=== PATIENT | female | born 1990 | race American Indian/Alaskan Native ===

== ENCOUNTER 2020-01-15 21:46 | Emergency (ER) | payer BC ==
[2020-01-16] MEDS ORDERED: IBUPROFEN 600 MG TAB PO ONE (04:26)
[2020-01-16] MEDS ORDERED: ACETAMINOPHEN 500 MG TAB PO ONE (04:26)
--- NOTE | 2020-01-16 06:35 | XRay Report ---
Lumbosacral spine, 3 views INDICATION: Back pain following injury FINDINGS: The vertebral body heights and disc spaces are preserved. No fracture or spondylolisthesis. No spurring or arthritis. No bony abnormality identified. Impression: Normal lumbar spine radiograph. Signer Name: Juan José Maya MD Signed: 01/16/2020 6:30 AM Workstation Name: [id number]
--- NOTE | 2020-01-16 06:36 | XRay Report ---
Left shoulder, 3 views INDICATION: Pain following injury FINDINGS: There is no bone, joint or soft tissue abnormality seen. Signer Name: Juan José Maya MD Signed: 01/16/2020 6:32 AM Workstation Name: [id number]
--- NOTE | 2020-01-16 06:44 | Emergency Department Report ---
ED Fall HPI - General Chief Complaint: Back Pain/Injury Stated Complaint: LEFT ARM/LEFT SIDE PAIN Source: patient Mode of arrival: Ambulatory - History of Present Illness Initial Comments: Patient is a 29-year-old -[place]ib[place] female with no past medical history presents to the ED with complaint of acute onset persistent left shoulder pain and low back pain after she slipped and fell down after bouncing on the wall about 6 hours ago. Patient denies head or neck injuries, dizziness, syncope, seizures, chest pain, shortness of breath, physical assault, heavy lifting, change in vision, numbness and tingling or weakness of upper and lower extremities bilaterally. MD Complaint: fall, other (left shoulder and lower back pain) -: Sudden, hour(s) (8) Fall From: standing When Fall Occurred: 4-6 hours [employer] Fall Witnessed: yes, by family Place Fall Occurred: home Loss of Consciousness: none Prolonged Down Time?: no Symptoms Prior to Fall: none Location: back (lower), other (left shoulder) Location - Extremities: Left: Shoulder (pain) Severity: severe Severity scale (0 -10): 7 Quality: sharp, aching Context: tripped/slipped Associated Symptoms: denies. denies: headache, neck pain, numbness, weakness, chest paint, shortness of breath, abdominal pain, hematuria, unable to walk, lightheaded, vertigo, confusion - Related Data Previous Rx's Medication Instructions Recorded Last Taken Type Cyclobenzaprine [Flexeril] 10 mg PO TID PRN #21 tablet 01/16/20 Unknown Rx Ibuprofen [Motrin] 600 mg PO Q8H PRN #24 tablet 01/16/20 Unknown Rx Allergies Allergy/AdvReac Type Severity Reaction Status Date / Time No Known Allergies Allergy Unverified 03/15/15 17:03 ED Review of Systems ROS: Stated complaint: LEFT ARM/LEFT SIDE PAIN Other details as noted in HPI Constitutional: denies: chills, fever Eyes: denies: eye pain, eye discharge, vision change ENT: denies: ear pain, throat pain Respiratory: denies: cough, shortness of breath, wheezing Cardiovascular: denies: chest pain, palpitations Endocrine: no symptoms reported Gastrointestinal: denies: abdominal pain, nausea, diarrhea Genitourinary: denies: urgency, dysuria, discharge Musculoskeletal: back pain (Low back pain), arthralgia (Left shoulder pain). denies: joint swelling Skin: denies: rash, lesions Neurological: denies: headache, weakness, paresthesias Psychiatric: denies: anxiety, depression Hematological/Lymphatic: denies: easy bleeding, easy bruising ED Past Medical Hx - Social History Smoking Status: Never Smoker Substance Use Type: None - Medications Home Medications: Home Medications Medication Instructions Recorded Confirmed Last Taken Type Cyclobenzaprine [Flexeril] 10 mg PO TID PRN #21 tablet 01/16/20 Unknown Rx Ibuprofen [Motrin] 600 mg PO Q8H PRN #24 tablet 01/16/20 Unknown Rx ED Physical Exam - General Limitations: No Limitations General appearance: alert, in no apparent distress - Head Head exam: Present: atraumatic, normocephalic, normal inspection - Eye Eye exam: Present: normal appearance, PERRL, EOMI Pupils: Present: normal accommodation - ENT ENT exam: Present: normal exam, normal orophraynx, mucous membranes moist, TM's normal bilaterally, normal external ear exam - Neck Neck exam: Present: normal inspection, full ROM. Absent: tenderness - Respiratory Respiratory exam: Present: normal lung sounds bilaterally. Absent: respiratory distress, wheezes, rales, rhonchi, chest wall tenderness, accessory muscle use, decreased breath sounds - Cardiovascular Cardiovascular Exam: Present: regular rate, normal rhythm, normal heart sounds. Absent: systolic murmur, diastolic murmur, rubs, gallop - GI/Abdominal GI/Abdominal exam: Present: soft, normal bowel sounds. Absent: tenderness, rebound, hyperactive bowel sounds - Extremities Exam Extremities exam: Present: normal inspection, full ROM, tenderness (Palpable left shoulder tenderness), normal capillary refill - Back Exam Back exam: Present: normal inspection, full ROM, tenderness (Palpable lumbosacral paraspinal musculoskeletal tenderness), muscle spasm, paraspinal tenderness - Neurological Exam Neurological exam: Present: alert, oriented X3, CN II-XII intact, normal gait, reflexes normal - Psychiatric Psychiatric exam: Present: normal affect, normal mood - Skin Skin exam: Present: warm, dry, intact, normal color. Absent: rash ED Course Vital Signs 01/15/20 21:48 Temperature 99.4 F Pulse Rate 103 H Respiratory 18 Rate Blood Pressure 172/117 [Right] O2 Sat by Pulse 99 Oximetry ED Medical Decision Making - Radiology Data Radiology results: report reviewed, image reviewed The left shoulder x-ray shows no acute fractures or subluxations. The L-spine x-ray shows no acute fractures or subluxations. - Medical Decision Making This is a 29-year-old female who presented to the ED with left shoulder pain and low back pain after she slipped and bounced off a wall and fell down 6 hours ago at home. In the ED, patient is alert and oriented x3 and is not in distress. Patient was treated for pain in the ED and the left shoulder x-ray shows no acute fractures or subluxations. The L-spine x-ray also shows no acute fractures or subluxations. On reevaluation, patient's pain is well controlled with medications. Patient was discharged home on pain medications and muscle relaxants and was advised to follow-up with her primary care physician in 5 to 7 days for reevaluation or return to the ED immediately if symptoms get worse. - Differential Diagnosis muscle strain; muscle spasm; back injury; shoulder injury Critical care attestation.: If time is entered above; I have spent that time in minutes in the direct care of this critically ill patient, excluding procedure time. ED Disposition Clinical Impression: Spasm of muscle of lower back Sprain of left shoulder girdle Qualifiers: Encounter type: initial encounter Qualified Code(s): S43.92XA - Sprain of unspecified parts of left shoulder girdle, initial encounter Disposition: TO HOME OR SELFCARE Is pt being admited?: No Does the pt Need Aspirin: No Condition: Stable Instructions: Acute Low Back Pain (ED), Shoulder Sprain (ED), Muscle Spasm (ED) Additional Instructions: The x-rays of your left shoulder and low back show no acute fractures or subluxations. Therefore take pain medications with food, drink plenty fluids and follow-up with your primary care physician in 5 to 7 days for reevaluation. Return to the ED immediately if symptoms get worse. Prescriptions: Cyclobenzaprine [Flexeril] 10 mg PO TID PRN #21 tablet PRN Reason: Muscle Spasm Ibuprofen [Motrin] 600 mg PO Q8H PRN #24 tablet PRN Reason: Pain Referrals: [facility] [Outside] - 7-10 days Forms: Work/School Release Form(ED) Time of Disposition: 06:41 Print Language: TRISTANIAN
[2020-01-16 07:03] VITALS: BP 151/105
== END 2020-01-16 06:50 | disposition home or self-care (01) ==
LOC: ED 21:46
DX: S43.92XA Sprain of unspecified parts of left shoulder girdle, initial encounter (principal); M62.830 Muscle spasm of back; X58.XXXA Exposure to other specified factors, initial encounter; Y93.89 Activity, other specified; Y92.89 Other specified places as the place of occurrence of the external cause; Y99.8 Other external cause status
CPT/HCPCS: 72100

== ENCOUNTER 2021-03-30 14:00 | Emergency (ER) | payer BC ==
--- NOTE | 2021-03-30 14:59 | Event Note ---
ED Screening Note ED Screening Note: r This initial assessment/diagnostic orders/clinical plan/treatment(s) is/are subject to change based on patients health status, clinical progression and re- assessment by fellow clinical providers in the ED. Further treatment and workup at subsequent clinical providers discretion. Patient/guardian urged not to elope from the ED as their condition may be serious if not clinically assessed and managed. Initial orders include: sunil simpson
[2021-03-30 15:09] LABS: Bacteria,Urine 1+ /HPF (Negative); Bilirubin,Urine NEG (Negative); Blood,Urine NEG (Negative); Color,Urine Yellow (Yellow); Mucus,Urine FEW /HPF; Protein,Urine <15 mg/dL mg/dL (Negative)
[2021-03-30 15:18] LABS: Hematocrit 37.5 % (30.3-42.9); Hemoglobin 12.6 gm/dl (10.1-14.3); Mean Corpuscular HGB Conc 34 % (30-34); Mean Corpuscular Volume 84 fl (79-97); Platelet Count 273 K/mm3 (140-440); Red Blood Count 4.46 M/mm3 (3.65-5.03); Red Cell Distribution Width 13.2 % (13.2-15.2)
[2021-03-30 15:38] LABS: Blood Urea Nitrogen 8 mg/dL (7-17); Calcium 9.1 mg/dL (8.4-10.2); Hemolysis Index 7
[2021-03-30 15:43] LABS: BUN/Creatinine Ratio 11
--- NOTE | 2021-03-30 20:52 | Emergency Department Report ---
ED Female HPI - General Chief complaint: Vaginal Bleeding Stated complaint: VAG BLEED (5WKS PREG) Time Seen by Provider: 03/30/21 14:58 Source: patient Mode of arrival: Ambulatory Limitations: No Limitations - History of Present Illness Initial comments: 30-year-old F Vincentian female presents emerged department complaining of a couple day history of mild vaginal bleeding which is concerning as the patient is 5 weeks . This is her second as she had a miscarriage during her first in September 2020. She reports no trauma reports no fever, chills, sweats no no no dysuria no chest pain palpitations. -: Gradual Quality: cramping Consistency: constant Improves with: none Worsens with: none - Related Data Previous Rx's Medication Instructions Recorded Last Taken Type Cyclobenzaprine [Flexeril] 10 mg PO TID PRN #21 tablet 01/16/20 Unknown Rx Ibuprofen [Motrin] 600 mg PO Q8H PRN #24 tablet 01/16/20 Unknown Rx Allergies Allergy/AdvReac Type Severity Reaction Status Date / Time No Known Allergies Allergy Unverified 03/15/15 17:03 ED Review of Systems ROS: Stated complaint: VAG BLEED (5WKS PREG) Other details as noted in HPI Comment: All other systems reviewed and negative ED Past Medical Hx - Past Medical History Previous Medical History?: No - Surgical History Past Surgical History?: No - Social History Smoking Status: Never Smoker - Medications Home Medications: Home Medications Medication Instructions Recorded Confirmed Last Taken Type Cyclobenzaprine [Flexeril] 10 mg PO TID PRN #21 tablet 01/16/20 Unknown Rx Ibuprofen [Motrin] 600 mg PO Q8H PRN #24 tablet 01/16/20 Unknown Rx ED Physical Exam - General Limitations: No Limitations General appearance: alert, in no apparent distress - Head Head exam: Present: atraumatic, normocephalic - Eye Eye exam: Present: normal appearance, PERRL, EOMI Pupils: Present: normal accommodation - ENT ENT exam: Present: normal exam, mucous membranes moist - Neck Neck exam: Present: normal inspection, full ROM - Respiratory Respiratory exam: Present: normal lung sounds bilaterally. Absent: respiratory distress, wheezes, rales - Cardiovascular Cardiovascular Exam: Present: regular rate, normal rhythm. Absent: systolic murmur, diastolic murmur, rubs, gallop - GI/Abdominal GI/Abdominal exam: Present: soft, normal bowel sounds - Extremities Exam Extremities exam: Present: normal inspection, normal capillary refill - Back Exam Back exam: Present: normal inspection. Absent: CVA tenderness (R), CVA tenderness (L) - Neurological Exam Neurological exam: Present: alert, oriented X3, CN II-XII intact - Psychiatric Psychiatric exam: Present: normal affect, normal mood - Skin Skin exam: Present: warm, dry, intact, normal color. Absent: rash ED Course Vital Signs 03/30/21 14:25 Temperature 98.4 F Pulse Rate 95 H Respiratory 18 Rate Blood Pressure 153/94 O2 Sat by Pulse 99 Oximetry ED Medical Decision Making - Lab Data Result diagrams: 03/30/21 15:07 03/30/21 15:07 - Radiology Data Radiology results: report reviewed [facility] with the following findings. There is palpable gestational sac in the uterus with a mean sac diameter measuring 0.26 cm, which is which corresponds to gestational age of 5 weeks 0 days, no pole is identified. Both ovaries appeared normal. There is no free fluid. Impression Likely gestational sac in the uterus with the sac size corresponding to 5 weeks 0 days. No pole identified. Depending on hCG values follow-up ultrasound in 2 to 3 weeks can be performed to confirm intrauterine . Critical care attestation.: If time is entered above; I have spent that time in minutes in the direct care of this critically ill patient, excluding procedure time. ED Disposition Clinical Impression: Threatened miscarriage in early Disposition: DC-01 TO HOME OR SELFCARE Is pt being admited?: No Does the pt Need Aspirin: No Condition: Stable Instructions: Vaginal Bleeding During , First Trimester Additional Instructions: It is recommended that she have a repeat ultrasound in 3 to 5 weeks to verify and confirm the intrauterine . Gestational sac is seen on the ultrasound exam examination corresponding with a gestational age of 5 weeks and 0days. No further impressions can be made due to the age of the Referrals: PRIMARY CARE, [Primary Care Provider] - 3-5 Days [facility] [Provider Group] - 3-5 Days
[2021-03-30 22:02] VITALS: BP 146/104
--- NOTE | 2021-03-31 06:48 | Ultrasound Report ---
Please see the report for the OB Ultrasound performed concomitantly. Signer Name: Lennox Boyd MD Signed: 03/31/2021 6:44 AM Workstation Name: [id number]
--- NOTE | 2021-03-31 07:33 | Ultrasound Report ---
US OB <= 14 weeks fetus INDICATION: VAG BLEED IN PREG. TECHNIQUE: Transabdominal and transvaginal OB ultrasound performed. COMPARISON: None available. FINDINGS: There is a probable gestational sac in the uterus with mean sac diameter measuring 0.26 cm, which cor responds to gestational age of 5 weeks and 0 days. No pole is identified. Both ovaries appear normal. There is no free fluid. IMPRESSION: 1. Likely gestational sac in the uterus with sac size corresponding to 5 weeks and 0 days gestational age. No pole identified. Depending on hCG values, follow-up ultrasound in 2-3 weeks can be per formed to confirm intrauterine . Signer Name: Je Estrella MD Signed: 03/30/2021 4:44 PM Workstation Name: [id number]
== END 2021-03-30 21:05 | disposition home or self-care (01) ==
LOC: ED 14:00
DX: O20.0 Threatened abortion (principal); Z79.899 Other long term (current) drug therapy; Z3A.01 Less than 8 weeks gestation of pregnancy
CPT/HCPCS: 36415; 76801; 76817; 80048; 81001; 84702; 85027; 86900; 86901

== ENCOUNTER 2021-04-29 17:05 | Observation (INO) | payer BC ==
--- NOTE | 2021-04-29 17:31 | History and Physical Report ---
History of Present Illness Date of examination: 04/29/21 Chief complaint: Pelvic pain, possible ectopic History of present illness: This is a 30 year-old AA female with a history of +UPT since 03/30/2021, she was initially evaluated at [facility] for vaginal bleeding and at the time noted to have a qbhcg of 98 with ? 5week GS noted on US. She was evaluated in the office on 04/04/21 where she had an US that revealed no IUP. She left before qbhcg could be drawn however at that time she had no pain. She returned to the office 04/19/21 for evaluated and was found to have ? intrauterine GS but her qbhcg was only 355, again she had no pain. She again evaluated 04/25 in the office, US revelaed no IUP ? right ectopic . Her qbhcg was 255. Shortly after that visit she complained of pain and was brought back to the office where again US revealed no IUP, ? pelvic fluid and pelvic by exam. Options were discussed, along with risks and consequences, she desires to proceed wiith laparoscopy with possible removal of her fallopian and possible cervical dilation and uterine curettage. Past History : 2 Term Births: 0 Premature Births: 0 Living Children: 0 Para: 0 Mult. Births: 0 Prev : 0 Prev. attempt? 0 Aborta: 0 Elect. Ab: 0 Spont. Ab: 1 Ectopics: 0 # 1 Delivery date: 2019 Weeks Gestation: 6wks Delivery type: SAB Comments: No complications, no D&C. Medications used. Past Medical History: Reviewed history from 03/19/2017 and no changes required: Negative Past Medical History Past Surgical History: Reviewed history from 09/21/2020 and no changes required: negative Past Medical History Anesthesia Complications: negative Anemia: negative Autoimmune Disorder: negative Bleeding Disorder: negative Blood Transfusions: negative Breast Disease: negative Diabetes: negative Heart Disease: negative Hypertension: negative Hepatitis/Liver Disease: negative Kidney Disease/UTI: negative Neurologic/Epilepsy/Migraines: negative Phlebitis/Varicosities: negative Psychiatric: negative Pulmonary Disease/Asthma: negative Thyroid Disease: negative Hospitalizations: negative Surgery (Non-electrician powerhouse): negative Abnormal PAP: negative TARAH Exposure: negative Infertility: negative Uterine Anomaly: negative Uterine Surgery (not C/S): negative Other Gynecologic Problems: negative Family Hx: HTN: Mother, grandmother Social Hx: Patient is single no e/t/d Smoking History: Patient has never smoked. Infection History Hx of STD: none HIV Risk Eval: no Hepatitis B Risk Eval: low risk Personal hx. of genital herpes: no Partner hx. of genital herpes: no Rash, Viral, or Febrile illness since last LMP? no Varicella/Chicken Pox Status: Previous Disease TB Risk: no Genetic History Congenital Heart Defect: Mom: no Dad: no Leyla Disease: Mom: no Dad: no Thalassemia Mom: no Dad: no Neural Tube Defect Mom: no Dad: no Down's Syndrome Mom: no Dad: no Luis-Sachs Mom: no Dad: no Sickle Cell Disease/Trait Mom: no Dad: no Hemophilia Mom: no Dad: no Muscular Dystrophy Mom: no Dad: no Cystic Fibrosis Mom: no Dad: no Giles Chorea Mom: no Dad: no Mental Retardation Mom: no Dad: no Fragile X Mom: no Dad: no Other Genetic/Chromosomal Disorder Mom: no Dad: no Child w/other defect Mom: no Dad: no Enviromental Exposures Xray Exposure: no Medication, drug, or alcohol use since LMP: no Chemical/Other Exposure: no Exposure to Cat Liter: no Hx of Parvovirus (Fifth Disease): no Occupational Exposure to Children: none Active Medications (reviewed today): DIFLUCAN 150 MG ORAL TABLET (FLUCONAZOLE) 1 po now prn yeast infeaction BACTRIM DS 800-160 MG ORAL TABLET (SULFAMETHOXAZOLE-TRIMETHOPRIM) one by mouth twice a day Current Allergies (reviewed today): No known allergies Medications and Allergies Allergies Allergy/AdvReac Type Severity Reaction Status Date / Time No Known Allergies Allergy Unverified 03/15/15 17:03 Home Medications Medication Instructions Recorded Confirmed Last Taken Type Cyclobenzaprine [Flexeril] 10 mg PO TID PRN #21 tablet 01/16/20 Unknown Rx Ibuprofen [Motrin] 600 mg PO Q8H PRN #24 tablet 01/16/20 Unknown Rx Exam - General physical appearance Positive: well developed, well nourished, no distress - Respiratory Positive: normal respiratory effort Assessment and Plan - Patient Problems (1) Abnormal Status: Acute Qualifiers: Trimester: unspecified trimester Qualified Code(s): O26.90 - related conditions, unspecified, unspecified trimester Plan to address problem: Probable ectopic . US findings and labs reviewed. Discussed in hospital observation vs surgical intervention. Recommend proceeding with laparoscopy with possible removal of all or part of the fallopian tube if indeed an ectopic is present. Explained life threatening consequences of ruptured ectopic . She was informed she is no longer a candidate for medical therapy since she has pain and ? blood in the abdomen. Also discussed D&C if no obvious evidence of ectopic is seen. Risk with these procedures were explained. Questions were encouraged and answered, she voiced understanding and desires to proceed with surgical intervention.
[2021-04-29] MEDS ORDERED: LIDOCAINE MPF (2%) 20 MG/1 ML VIAL 5 ML ONE (17:57)
[2021-04-29] MEDS ORDERED: ONDANSETRON 4 MG/2 ML INJ ONE (17:57)
[2021-04-29] MEDS ORDERED: ROCURONIUM 50 MG/5 ML INJ IV ONE (17:57)
[2021-04-29] MEDS ORDERED: SUCCINYLCHOLINE CHLORIDE 200 MG/10 ML INJ MDV ONE (17:57)
[2021-04-29] MEDS ORDERED: dexAMETHasone 20 MG/5 ML VIAL ONE (17:57)
[2021-04-29] MEDS ORDERED: propofoL 200 MG/20 ML VIAL IV ONE (17:58)
[2021-04-29] MEDS ORDERED: fentaNYL 100 MCG/2 ML INJ ONE (17:58)
[2021-04-29] MEDS ORDERED: ceFAZolin/Water 2 GM/20 ML 2 GM/20 ML SYRINGE IV NR (18:00)
[2021-04-29] MEDS ORDERED: LACTATED RINGERS 1,000 ML ONE (18:16)
[2021-04-29] MEDS ORDERED: BUPIVACAINE/PF (0.5%) 5 MG/1 ML 30 ML VIAL INFILTRATI ONE ×2 (18:20→19:33)
--- NOTE | 2021-04-29 18:46 | Anesthesia Consultation ---
Anesthesia Consult and Med Hx Date of service: 04/29/21 - Airway Anesthetic Teeth Evaluation: Good ROM Head & Neck: Adequate Mental/Hyoid Distance: Adequate Mallampati Class: Class I Intubation Access Assessment: Good - Cardiac Exam Cardiac Exam: RRR - Pre-Operative Health Status ASA Pre-Surgery Classification: ASA1 Proposed Anesthetic Plan: General - Pulmonary Hx Smoking: No Hx Asthma: No Hx Respiratory Symptoms: No - Cardiovascular System Hx Hypertension: No - Central Nervous System Hx Neuromuscular Disorder: No - Gastrointestinal Hx Gastroesophageal Reflux Disease: No - Endocrine Hx Renal Disease: No - Other Systems Hx Alcohol Use: No Hx Substance Use: No
--- NOTE | 2021-04-29 18:47 | Anesthesia Day of Surgery ---
Anesthesia Day of Surgery - Day of Surgery Patient Examined: Yes Patient H&P Reviewed: Yes Patient is NPO: Yes (since 1224) Beta Blockers: No Holden's Test: N/A
[2021-04-29] MEDS ORDERED: MIDAZOLAM 2 MG/2 ML INJ ONE (18:51)
[2021-04-29 19:24] LABS: Hematocrit 36.2 % (30.3-42.9); Hemoglobin 12.3 gm/dl (10.1-14.3); Mean Corpuscular HGB Conc 34 % (30-34); Mean Corpuscular Volume 85 fl (79-97); Platelet Count 276 K/mm3 (140-440); Red Blood Count 4.24 M/mm3 (3.65-5.03); Red Cell Distribution Width 13.4 % (13.2-15.2)
[2021-04-29] MEDS ORDERED: SODIUM CHLORIDE 0.9% IRRIG SOLN 2000 ML IR ONE (19:34)
[2021-04-29] MEDS ORDERED: NEOSTIGMINE 10MG/10 ML INJ MDV ONE (19:43)
[2021-04-29] MEDS ORDERED: GLYCOPYRROLATE 0.4 MG/2 ML INJ ONE (19:43)
[2021-04-29] MEDS ORDERED: SODIUM CHLORIDE 0.9% IRR 1,500 ML BOTTLE IR ONE (19:55)
[2021-04-29] MEDS ORDERED: ONDANSETRON 4 MG/2 ML INJ IV PRN (20:03)
[2021-04-29] MEDS ORDERED: HYDROmorphone 1 MG/1 ML INJ IV PRN ×3 (20:03→20:43)
[2021-04-29] MEDS ORDERED: KETOROLAC 30 MG/1 ML INJ IV PRN (20:43)
--- NOTE | 2021-04-29 21:00 | Post Anesthesia Evaluation ---
- Post Anesthesia Evaluation Patient Participated: Yes Airway Patent: Yes Stable Respiratory Function: Yes Nausea/Vomiting: No Temp > 96.8F: Yes Pain Manageable: Yes Adequeate Hydration: Yes Anesthesia Complications: No Block Receding Appropriately: Not Applicable
--- NOTE | 2021-04-29 21:16 | Post Operative Note ---
Pre-op diagnosis: possible ectopic Post-op diagnosis: same Findings: Right distal ectopic Procedure: Laparoscopic right distal salpingectomy Anesthesia: GETA Surgeon: ROCHELLE BEAL Estimated blood loss: 50-100ml (In abdomen on entry) Pathology: list (right distal fallopian tube with POCs) Specimen disposition: to lab Condition: stable Disposition: PACU
--- NOTE | 2021-04-29 21:21 | Discharge Summary ---
Providers - Providers Date of Admission: 04/29/21 17:46 Attending physician: ROCHELLE BEAL Primary care physician: ROCHELLE BEAL Hospitalization Condition: Good Procedures: Laparoscopic right distal salpingectomy Hospital course: Patient presented with the office with suspected ectopic . She underwent diagnostic laparoscopy that revealed a right distal ectopic that was removed without any complications. She was was taken to recovery room and remained stable and was discharged home in stable condition. Operative findings and procedure discussed with patient's fianc and her fianc's mother. Questions were encouraged and answered. Disposition: DC-01 TO HOME OR SELFCARE Final Discharge Diagnosis (Prints w/discharge instructions): Laparoscopic right distal salpingectomy - Discharge Diagnoses (1) Abnormal Status: Acute Qualifiers: Trimester: unspecified trimester Qualified Code(s): O26.90 - related conditions, unspecified, unspecified trimester Core Measure Documentation - Palliative Care Palliative Care/ Comfort Measures: Not Applicable - Core Measures Any of the following diagnoses?: none Exam - Constitutional Vitals: Temp Pulse Resp BP Pulse Ox 97.5 F L 61 22 131/77 100 04/29/21 20:37 04/29/21 20:47 04/29/21 20:47 04/29/21 20:47 04/29/21 20:47 General appearance: Present: no acute distress - Respiratory Respiratory effort: normal - Cardiovascular Rhythm: regular - Psychiatric Psychiatric: appropriate mood/affect Plan Activity: other (No sex, no driving. Ambulate approximately 1 mile property a day. Void every hour.) Weight Bearing Status: Full Weight Bearing Diet: regular (Eat small meals frequently. Drink approximately 70 ounces of water a day. Avoid spicy, high salt, high-fat and high carbohydrate foods.) Wound: open to air, keep clean and dry Special Instructions: no heavy lifting (Greater than 15 pounds) Follow up with: ROCHELLE BEAL MD [Primary Care Provider] - 7 Days Prescriptions: Ibuprofen [Motrin 800 MG tab] 800 mg PO Q8HR PRN #30 tablet PRN Reason: Pain, Moderate (4-6) oxyCODONE /ACETAMINOPHEN [Percocet 5/325] 1 - 2 tab PO Q6HR PRN #7 tablet PRN Reason: Pain
[2021-04-29] MEDS ORDERED: oxyCODONE /ACETAMINOPHEN 5-325MG TAB PO ONE (21:31)
[2021-04-29] MEDS ORDERED: oxyCODONE /ACETAMINOPHEN 5-325MG TAB ONE (21:32)
--- NOTE | 2021-04-29 21:59 | Operative Report ---
Operative Report Operative Report: DATE OF OPERATION: 04/29/2021 PREOPERATIVE DIAGNOSIS: Possible ectopic POSTOPERATIVE DIAGNOSIS: Right distal ectopic OPERATION PERFORMED: Laparoscopic right distal salpingectomy SURGEON: Fina Rodney MD SINGING WAITER OR WAITRESS: . ANESTHESIA: General endotracheal. ESTIMATED BLOOD LOSS: Approximately 100 mL of hemoperitoneum SPECIMENS: Right distal fallopian tube and fimbria COMPLICATIONS: None apparent. CONDITION: Stable to recovery room. OPERATIVE FINDINGS: Grossly normal uterus cervix bilateral ovaries and left fallopian tube. Adhesion of the distal fallopian tube and ovary to the pelvic sidewall. After was released from the sidewall there appeared to be products of conception extruding from the distal end of the fallopian tube. An attempt to remove the tissue and preserve the tube there was bleeding from the fimbriated end therefore the decision was made to proceed with distal salpingectomy. DESCRIPTION OF OPERATION: After informed consent, the patient was brought to the operating room and placed supine on the operating table. General endotracheal anesthesia was then administered by the anesthesiologist. The patient was then placed in the dorsal lithotomy position and prepped and draped in the usual sterile fashion for an abdominal and vaginal procedure. A Saucedo catheter was placed into the bladder. A Graves speculum was placed into the vagina and the cervix was grasped with an single-tooth tenaculum then progressively dilated to allow the Sargis uterine manipulator. The speculum and tenaculum were removed. Sterile gloves were placed and attention was turned to the abdomen. A supraumbilical incision was made and a 5 mm Optiview trocar with the laparoscope and camera attached was introduced through the incision under direct visualization. No bowel, bladder, ureteral, or major vascular injury was noted.. Pneumoperitoneum was then created with CO2 gas. The patient was then placed in steep Trendelenburg position and the above findings were noted. An additional 8 mm trocar was placed in the midline suprapubic region approximately 2 cm superior to the symphysis pubis through an incision under direct visualization. Again no bowel, bladder, ureteral, or major vascular injury was noted. Systematic examination of the pelvis revealed the above findings. The right ovary appeared normal although, it was somewhat adherent to the right pelvic sidewall along with the fallopian tube. Grossly normal left tube, uterus and ovary. As mentioned above using the Roamler laparoscopic grasper the right ovary and tube were gently released from the pelvic sidewall. At this point products of conception were visualized and multiple attempts were made to remove the tissue from the fimbriated ends in order to preserve the tube however bleeding from the fimbria was noted. Therefore the tube was elevated and using the 5 mm [place] LigaSure the distal portion of the tube was excised and rem eva through the 8 mm trocar. Tissue was sent to pathology permanent. . The operative site was examined and found to be hemostatic. The pelvis was then copiously irrigated and suctioned. Hemostasis was noted at the operative site while suctioning was occurring. The patient was taken out of Trendelenburg, and all the blood and fluid from the upper abdomen was allowed to run down into the pelvis and this was suctioned away as well. Mark was placed over the surgical site to ensure hemostasis. Once hemostasis was noted the procedure was ended. The 8 mm trochar removed under direct visualization, hemostasis was noted. The CO2 was released through the supraumbilical trocar and the trocar was removed. The incisions were infused with half percent Marcaine without epinephrine. The skin incisions were closed with 4-0 Monocryl in a subcuticular manner and Dermabond was applied to the incisions. All sponge and instrument counts were correct x2 at the end of the procedure. The Saucedo catheter and Sargis uterine manipulator were also removed. No bleeding from the vagina was noted. Drainage of clear yellow urine into the Saucedo catheter was noted. Then the Saucedo catheter was removed, the patient did tolerate the procedure well. Patient was taken to recovery room in stable condition.
[2021-04-29 22:41] VITALS: BP 144/88
== END 2021-04-29 22:15 | disposition home or self-care (01) ==
LOC: 3A 17:05 → UNDOADMOB 17:05 → 3A 17:46
PROVIDERS: ADMIT Obstetrics & Gynecology; ATTEND Obstetrics & Gynecology
DX: O00.101 Right tubal pregnancy without intrauterine pregnancy (principal); Z3A.01 Less than 8 weeks gestation of pregnancy
CPT/HCPCS: 36415; 59151; 85027; 86850; 86900; 86901; 88305; 96374; A4217; G0378; G0379; J0330; J1100; J1885; J2250; J2704; J2710; J3010; J7120; J2405